=== PATIENT | female | born 1965 | race Caucasian/White ===

== ENCOUNTER → 2016-06-23 | Outpatient (CLI) | payer OTHER ==
[~2016-06-23] MED LIST: ASPIR 8181 MG PO; BRILINTA 90 MG90 MG PO; ISOSORBIDE MON120 MG PO; LIPITOR TAB 2020 MG PO; LOPRESSOR50 MG PO; NITROSTAT 0.40.4 MG SL; PLAVIX 75 MG TA75 MG PO; PROTONIX40 MG PO; RANEXA1000 MG PO
== END ==
LOC: SLEEP-COR 21:30
DX: G47.33 Obstructive sleep apnea (adult) (pediatric) (principal)
CPT/HCPCS: 95810